=== PATIENT | male | born 1970 | race African-American/Black ===

== ENCOUNTER → 2017-04-23 | Outpatient (CLI) | payer SELFPAY | END | disposition home or self-care (01) | LOC: RAD 10:26 | DX: M47.896 Other spondylosis, lumbar region (principal); M25.551 Pain in right hip ==

== ENCOUNTER → 2021-02-28 | Outpatient (CLI) | payer OTHER ==
[2021-02-28 17:03] LABS: HEMATOCRIT 45.3 % (42.0-52.0); MEAN CELL VOLUME 88.3 fl (80.0-94.0); MEAN CORPUSCULAR HGB 28.8 pg (27.0-31.0); MEAN CORPUSCULAR HGB CONC 32.7 g/dl (33.0-37.0); MEAN PLATELET VOLUME 10.3 fl (9.6-12.3); RED BLOOD COUNT 5.13 10*6/uL (4.50-5.90); RED CELL DISTRI WIDTH 14.7 % (0-14.5); WHITE BLOOD COUNT 8.9 10*3/uL (4.8-10.8)
[2021-02-28 17:33] LABS: ALKALINE PHOSPHATASE 87 U/L (45-117); BUN 7 mg/dl (7-24); CHLORIDE 105 mmol/L (98-107); CHOLESTEROL 166 mg/dL (<200); CPK 770 U/L (39-308); CREATININE 1.06 mg/dL (0.70-1.30); LDL CHOLESTEROL 105 mg/dL (9-159); POTASSIUM 3.5 mmol/L (3.5-5.1); SGOT/AST 48 IU/L (3-35); SGPT/ALT 70 U/L (12-78); SODIUM 139 mmol/L (136-145); TOTAL PROTEIN 7.7 gm/dL (6.4-8.2); TRIGLYCERIDES 91 mg/dl (<150)
[2021-03-02 08:07] LABS: RHEUMATOID ARTHRITIS FACTOR <10.0 IU/mL (0.0-13.9)
== END | disposition home or self-care (01) ==
LOC: LAB 16:36
PROVIDERS: ATTEND Family Medicine
DX: E55.9 Vitamin D deficiency, unspecified (principal); M25.50 Pain in unspecified joint; M79.10 Myalgia, unspecified site; M26.629 Arthralgia of temporomandibular joint, unspecified side; R53.83 Other fatigue; Z79.899 Other long term (current) drug therapy

== ENCOUNTER → 2023-05-27 | Outpatient (CLI) | payer OTHER ==
[2023-05-27 08:41] LABS: HEMATOCRIT 46.5 % (42.0-52.0); MEAN CELL VOLUME 88.1 fl (80.0-94.0); MEAN CORPUSCULAR HGB 29.2 pg (27.0-31.0); MEAN CORPUSCULAR HGB CONC 33.1 g/dl (33.0-37.0); MEAN PLATELET VOLUME 9.9 fl (9.6-12.3); RED BLOOD COUNT 5.28 10*6/uL (4.50-5.90); RED CELL DISTRI WIDTH 14.6 % (0-14.5); WHITE BLOOD COUNT 8.4 10*3/uL (4.8-10.8)
[2023-05-27 08:52] LABS: ACT PARTIAL THROMBO TIME 28.4 SECONDS (20.0-32.1); INTERNATIONAL NORM RATIO 1.1 (2.0-3.5)
[2023-05-27 09:05] LABS: ALKALINE PHOSPHATASE 71 U/L (46-116); BUN 9 mg/dl (9-23); CHLORIDE 104 mmol/L (98-107); CHOLESTEROL 160 mg/dL (<200); LDL CHOLESTEROL 98 mg/dL (9-159); POTASSIUM 3.5 mmol/L (3.4-5.1); SGPT/ALT 37 U/L (5-49); TOTAL PROTEIN 7.3 gm/dL (6.0-8.0); TRIGLYCERIDES 104 mg/dl (<150)
== END | disposition home or self-care (01) ==
LOC: LAB 01:04
PROVIDERS: ATTEND Family Medicine
DX: Z01.812 Encounter for preprocedural laboratory examination (principal); M25.561 Pain in right knee; E74.9 Disorder of carbohydrate metabolism, unspecified

== ENCOUNTER → 2023-12-28 | Outpatient (CLI) | payer OTHER | END | disposition home or self-care (01) | LOC: RAD 15:40 | PROVIDERS: ATTEND Family Medicine | DX: S49.91XA Unspecified injury of right shoulder and upper arm, initial encounter (principal); M19.011 Primary osteoarthritis, right shoulder; M25.511 Pain in right shoulder; X58.XXXA Exposure to other specified factors, initial encounter; Y93.89 Activity, other specified; Y92.89 Other specified places as the place of occurrence of the external cause; Y99.8 Other external cause status ==